=== PATIENT | female | born 1960 | race Caucasian/White ===

== ENCOUNTER → 2016-06-08 | Outpatient (CLI) | payer BC | END | disposition home or self-care (01) | LOC: CFH 09:50 | PROVIDERS: ATTEND Internal Medicine | DX: Z12.31 Encounter for screening mammogram for malignant neoplasm of breast (principal) | CPT/HCPCS: G0202 ==

== ENCOUNTER → 2017-01-02 | Outpatient (CLI) | payer BC | END | disposition home or self-care (01) | LOC: RAD 08:29 | PROVIDERS: ATTEND Oral & Maxillofacial Surgery | DX: M26.69 Other specified disorders of temporomandibular joint (principal) | CPT/HCPCS: 70336 ==

== ENCOUNTER → 2017-08-15 | Outpatient (CLI) | payer BC | END | disposition home or self-care (01) | LOC: CFH 13:12 | PROVIDERS: ATTEND Nurse Practitioner Family | DX: M47.896 Other spondylosis, lumbar region (principal); M47.897 Other spondylosis, lumbosacral region; M51.26 Other intervertebral disc displacement, lumbar region; M54.16 Radiculopathy, lumbar region | CPT/HCPCS: 72148 ==

== ENCOUNTER → 2020-10-05 | Outpatient (CLI) | payer BC ==
[2020-10-05 09:02] LABS: BASOPHILS % (AUTO) 0 % (0-1); EOSINOPHILS % (AUTO) 2 % (1-7); LYMPHOCYTES % (AUTO) 38 % (22-44); MEAN CORPUSCULAR HEMOGLOBIN 28.9 pg (27.0-34.8); MEAN CORPUSCULAR HGB CONC 33.5 g/dL (32.4-35.8); MEAN PLATELET VOLUME 7.2 fL (7.4-10.4); MONOCYTES % (AUTO) 7 % (2-9); NEUTROPHILS % (AUTO) 52 % (42-75); PLATELET COUNT 197 x10^3/uL (130-400); RED BLOOD COUNT 5.52 x10^6/uL (3.82-5.3); RED CELL DISTRIBUTION WIDTH 14.3 % (9.6-15.2)
[2020-10-05 09:08] LABS: ALBUMIN 3.5 g/dL (3.4-5.0); ANION GAP 4 mmol/L (5-15); CALCIUM 9.3 mg/dL (8.5-10.1); CHLORIDE 105 mmol/L (98-107)
[2020-10-05 09:17] LABS: ALANINE AMINOTRANSFERASE 19 U/L (12-78); ALKALINE PHOSPHATASE 100 U/L (45-117); BILIRUBIN,TOTAL 0.6 mg/dL (0.2-1.0); CHOL/HDL RATIO 3.6; CHOLESTEROL, TOTAL 211 mg/dL (140-239); CREATININE 1.07 mg/dL (0.55-1.02); FREE T4 (FREE THYROXINE) 1.12 ng/dL (0.76-1.46); HDL CHOL % 28 % (28-40); HDL CHOLESTEROL (DIRECT) 59 mg/dL (40-60); LDL CHOLESTEROL,CALCULATED 124 mg/dL (54-169); LDL/HDL RATIO 2.1 (0.5-3.0); TRIGLYCERIDES 141 mg/dL (50-200); VLDL CHOLESTEROL 28 mg/dL (0-25)
== END | disposition home or self-care (01) ==
LOC: LAB 08:43
PROVIDERS: ATTEND Internal Medicine
DX: E03.9 Hypothyroidism, unspecified (principal); E78.5 Hyperlipidemia, unspecified
CPT/HCPCS: 36415; 80053; 80061; 84439; 84443; 85025